=== PATIENT | female | born 1965 | race Caucasian/White ===

== ENCOUNTER 2019-05-23 11:45 | Inpatient (IN) | payer OTHER ==
[~2019-05-23] VITALS: Ht 160 cm; Wt 93.0 kg
[~2019-05-23 11:45] MED LIST: ACET-2065 PO; APIX5TAB PO; ATOR-2 PO; FLEC100T PO; LISI-167 PO; METO25TA35 PO; METO25TA91 PO; MULT1TAB60 PO; ROSU5TAB PO; SOTA80TA18 PO
--- NOTE | 2019-05-23 12:22 | NUR ---
PATIENT PRESENTS TO ED TODAY FOR NEAR SYNCOPAL EPISODE TODAY AT 1200 WITH CHEST TIGHTNESS, DENIES LOC. HX A-FIB WITH CARDIAC ABLASION 03/09/19. PATIENT REPORTS SHE IS SCHEDULED FOR CARDIAC ABLATION TOMORROW WITH DR SKY. PATIENT AMB WITH STEADY GAIT TO ROOM TR 02, PRIME BROKER ON PATIENT. AWAITING MD ORDERS, CALL LIGHT WITHIN REACH. A+OX4, RESP EVEN/UNLABORED.
--- NOTE | 2019-05-23 12:34 | NUR ---
TASK RN: PT RESTING ON GURNEY. MANNING. MONITORS REMAIN IN PLACE. WARM BLANKET AND PILLOW PROVIDED.
[2019-05-23] MEDS ORDERED: METOPROLOL 1 MG/ML, 5ML IVPush SCH (13:00)
[2019-05-23] MEDS ORDERED: METOPROLOL 1 MG/ML, 5ML ONE (13:10)
--- NOTE | 2019-05-23 13:13 | NUR ---
PATIENT TO BE ADMITTED, PATIENT UPDATED ON POC. PATIENT SITTING IN [facility], RESP EVEN/UNLABORED. IV ESTABLISHED, ADMIT ORDER IN, METOPROLOL ADMINSITERED PER ORDER, OKAY'D BY DR SKY WHO WILL BE PERFORMING THE CARDIAC ABLATION TOMORROW. VS UPDATED IN CHART. NO ADDITIONAL NEEDS AT THIS TIME, AWAITING BED ASSIGNMENT.
--- NOTE | 2019-05-23 13:23 | NUR ---
Amena fisher in EDM - 05/23/19 at 1323 by [facility] AT BEDSIDE, RT AT BEDSIDE AND TO PUT PATIENT ON OPTIFLOW SOON LABS ARE DRAWN.
--- NOTE | 2019-05-23 14:17 | NUR ---
PATIENT SITTING IN [facility]. REPORT TO BENITO WHALEY. VS UPDATED IN CHART, AWAITING TRANSPORT.
--- NOTE | 2019-05-23 14:52 | NUR ---
PATIENT TRANSFERRED/ADMITTED TO HOSPITAL BED UPSTAIRS.
[2019-05-23 14:54] VITALS: BP 130/72
[2019-05-23] MEDS ORDERED: METOPROLOL 1 MG/ML, 5ML IVPush PRN (17:00)
[2019-05-23 19:56] VITALS: BP 106/74
[2019-05-24 01:16] VITALS: BP 94/66
[2019-05-24 05:25] LABS: BASOPHILS # (AUTO) 0.03 x10^3/uL (0-0.1); BASOPHILS % (AUTO) 1 % (0-1); EOSINOPHILS # (AUTO) 0.09 x10^3/uL (0-0.4); EOSINOPHILS % (AUTO) 2 % (1-7); LYMPHOCYTES # (AUTO) 2.11 x10^3/uL (1-3.4); LYMPHOCYTES % (AUTO) 42 % (22-44); MD NO; MEAN CORPUSCULAR HEMOGLOBIN 32.6 pg (27.0-34.8); MEAN CORPUSCULAR HGB CONC 34.1 g/dL (32.4-35.8); MEAN CORPUSCULAR VOLUME 95.7 fL (80-100); MEAN PLATELET VOLUME 8.2 fL (7.4-10.4); MONOCYTES # (AUTO) 0.42 x10^3/uL (0.2-0.8); MONOCYTES % (AUTO) 8 % (2-9); NEUTROPHILS # (AUTO) 2.34 x10^3/uL (1.8-6.8); NEUTROPHILS % (AUTO) 47 % (42-75); PLATELET COUNT 253 x10^3/uL (130-400); RED BLOOD COUNT 4.17 x10^6/uL (3.82-5.3); RED CELL DISTRIBUTION WIDTH 13.2 % (9.6-15.2)
[2019-05-24 05:39] LABS: ANION GAP 6 mmol/L (5-15); CALCIUM 8.4 mg/dL (8.5-10.1); CHLORIDE 110 mmol/L (98-107)
[2019-05-24 05:42] LABS: CREATININE 0.68 mg/dL (0.55-1.02)
[2019-05-24 07:15] VITALS: BP 106/73
[2019-05-24] MEDS ORDERED: LIDOCAINE 1%, 20ML ONE (07:15)
[2019-05-24] MEDS ORDERED: ONDANSETRON 2MG/ML, 2ML IV PRN (08:30)
[2019-05-24] MEDS ORDERED: LABETALOL 5MG/ML, 20ML IV PRN (08:30)
[2019-05-24] MEDS ORDERED: MEPERIDINE/PF 25MG/ML,1ML IVPush PRN (08:30)
[2019-05-24] MEDS ORDERED: hydrALAzine 20 MG/ML, 1ML IV PRN (08:30)
[2019-05-24] MEDS ORDERED: HYDROmorphone 2 MG/ML, 1ML IVPush PRN (08:30)
[2019-05-24] MEDS ORDERED: HYDROcodone/APAP 7.5-325MG/15ML UDC PO PRN (08:30)
[2019-05-24] MEDS ORDERED: EPHEDRINE 50 MG/ML, 1ML IVPush PRN (08:30)
[2019-05-24] MEDS ORDERED: ACETAMINOPHEN 325 MG TABLET PO PRN (08:30)
[2019-05-24] MEDS ORDERED: FENTANYL PF 100 MCG/2ML IV PRN (08:30)
[2019-05-24] MEDS ORDERED: PROMETHAZINE 25 MG/ML, 1ML IV PRN (08:30)
[2019-05-24] MEDS: MULTIVITAMIN 1 TABLET PO SCH (09:00)
[2019-05-24] MEDS ORDERED: PROMETHAZINE 25 MG/ML, 1ML ONE (11:46)
[2019-05-24] MEDS: APIXABAN 5 MG TABLET PO SCH (12:19)
[2019-05-24 13:25] VITALS: BP 97/65
[2019-05-24] MEDS: COLCHICINE 0.6 MG CAPSULE PO SCH ×2 (13:53→22:38)
[2019-05-24] MEDS ORDERED: ACETAMINOPHEN 325 MG TABLET ONE (16:18)
[2019-05-24] MEDS: ACETAMINOPHEN 325 MG TABLET PO PRN ×2 (16:22→22:38)
[2019-05-24 19:04] VITALS: BP 110/73
[2019-05-24] MEDS ORDERED: NITROGLYCERIN 0.4 MG/SPRAY SL PRN (20:00)
[2019-05-24] MEDS ORDERED: NITROGLYCERIN 0.4 MG BOTTLE (25 TABS) SL PRN (20:00)
[2019-05-24] MEDS: DOFETILIDE 125 MCG CAPSULE PO SCH (21:00)
[2019-05-24] MEDS: ATORVASTATIN 10 MG TABLET PO SCH (22:39)
[2019-05-24] MEDS ORDERED: APIXABAN 5 MG TABLET PO ONE (23:00)
[2019-05-25 00:36] VITALS: BP 104/71
[2019-05-25 04:05] VITALS: BP 106/76
[2019-05-25] MEDS: APIXABAN 5 MG TABLET PO SCH ×2 (08:36→21:22)
[2019-05-25] MEDS: MULTIVITAMIN 1 TABLET PO SCH (08:36)
[2019-05-25] MEDS: COLCHICINE 0.6 MG CAPSULE PO SCH ×2 (08:36→21:22)
[2019-05-25 08:39] VITALS: BP 114/77
[2019-05-25] MEDS: DOFETILIDE 125 MCG CAPSULE PO SCH ×2 (09:32→21:22)
[2019-05-25] MEDS ORDERED: SIMETHICONE 80 MG CHEW TAB PO PRN (11:00)
[2019-05-25 12:43] VITALS: BP 116/78
[2019-05-25] MEDS: ACETAMINOPHEN 325 MG TABLET PO PRN (17:50)
[2019-05-25 20:02] VITALS: BP 121/78
[2019-05-25] MEDS: ATORVASTATIN 10 MG TABLET PO SCH (21:21)
[2019-05-26 02:34] VITALS: BP 108/71
[2019-05-26] MEDS: ACETAMINOPHEN 325 MG TABLET PO PRN (06:27)
[2019-05-26 07:28] VITALS: BP 114/75
[2019-05-26] MEDS ORDERED: POLYETHYLENE GLYCOL 17 GM PACKET PO ONE (08:30)
[2019-05-26 09:12] LABS: ANION GAP 6 mmol/L (5-15); CALCIUM 8.2 mg/dL (8.5-10.1); CHLORIDE 110 mmol/L (98-107)
[2019-05-26 09:14] LABS: CREATININE 0.69 mg/dL (0.55-1.02)
[2019-05-26] MEDS: MULTIVITAMIN 1 TABLET PO SCH (09:46)
[2019-05-26] MEDS: APIXABAN 5 MG TABLET PO SCH (09:46)
[2019-05-26] MEDS: COLCHICINE 0.6 MG CAPSULE PO SCH (09:46)
[2019-05-26] MEDS: DOFETILIDE 125 MCG CAPSULE PO SCH (10:18)
[2019-05-26] MEDS ORDERED: KETOROLAC 30 MG/1 ML ONE (10:49)
[2019-05-26] MEDS ORDERED: KETOROLAC 30 MG/1 ML IVPush ONE (11:00)
[2019-05-26] MEDS ORDERED: KETOROLAC 30 MG/1 ML IM ONE (11:00)
[2019-05-26] MEDS ORDERED: DOFE250C PO (13:04)
[2019-05-26] MEDS ORDERED: COLC0.6C3 PO (13:06)
[2019-05-26 14:11] VITALS: BP 111/73
== END 2019-05-26 15:01 | disposition home or self-care (01) | DRG 274 ==
LOC: SUATTDRO 13:17 → ED 13:32 → EDIP 13:33 → ED 13:40 → 5SO 15:07 → DCLOUNGE 05-26 14:45
PROVIDERS: ADMIT Family Medicine; ATTEND Family Medicine
PROC: 02K83ZZ Map Conduction Mechanism, Percutaneous Approach (ICD-10-PCS; 2019-05-24)
PROC: 5A2204Z Restoration of Cardiac Rhythm, Single (ICD-10-PCS; 2019-05-24)
PROC: B24BZZ4 Ultrasonography of Heart with Aorta, Transesophageal (ICD-10-PCS; 2019-05-24)
PROC: 03HY32Z Insertion of Monitoring Device into Upper Artery, Percutaneous Approach (ICD-10-PCS; 2019-05-24)
PROC: 02583ZZ Destruction of Conduction Mechanism, Percutaneous Approach (ICD-10-PCS; principal; 2019-05-24 08:00)
DX: I48.92 Unspecified atrial flutter (principal); D68.69 Other thrombophilia; I31.9 Disease of pericardium, unspecified; E78.5 Hyperlipidemia, unspecified; I10 Essential (primary) hypertension; I48.91 Unspecified atrial fibrillation; S00.531A Contusion of lip, initial encounter; X58.XXXA Exposure to other specified factors, initial encounter; Z80.1 Family history of malignant neoplasm of trachea, bronchus and lung; Z87.891 Personal history of nicotine dependence; Y93.89 Activity, other specified; Y92.89 Other specified places as the place of occurrence of the external cause; Y99.8 Other external cause status
CPT/HCPCS: 36415; 93613; 93623; 93656; 93657; 93662; J3490; 71046; 80048; 83735; 85025; 85347; 93005; 93306; 96374; 99285; C1732; C1766; C1893; C1894; G0378; J1885; J2550; C1730; C1759

== ENCOUNTER → 2019-05-24 | Day surgery (SDC) | payer OTHER ==
[2019-05-23 09:45] LABS: BASOPHILS # (AUTO) 0.02 x10^3/uL (0-0.1); BASOPHILS % (AUTO) 0 % (0-1); EOSINOPHILS # (AUTO) 0.08 x10^3/uL (0-0.4); EOSINOPHILS % (AUTO) 2 % (1-7); LYMPHOCYTES # (AUTO) 2.16 x10^3/uL (1-3.4); LYMPHOCYTES % (AUTO) 44 % (22-44); MD NO; MEAN CORPUSCULAR HEMOGLOBIN 31.9 pg (27.0-34.8); MEAN CORPUSCULAR HGB CONC 33.6 g/dL (32.4-35.8); MEAN PLATELET VOLUME 7.9 fL (7.4-10.4); MONOCYTES # (AUTO) 0.36 x10^3/uL (0.2-0.8); MONOCYTES % (AUTO) 7 % (2-9); NEUTROPHILS # (AUTO) 2.32 x10^3/uL (1.8-6.8); NEUTROPHILS % (AUTO) 47 % (42-75); PLATELET COUNT 281 x10^3/uL (130-400); RED BLOOD COUNT 4.34 x10^6/uL (3.82-5.3); RED CELL DISTRIBUTION WIDTH 13.2 % (9.6-15.2)
[2019-05-23 09:58] LABS: ANION GAP 6 mmol/L (5-15); CALCIUM 8.9 mg/dL (8.5-10.1); CHLORIDE 110 mmol/L (98-107)
[2019-05-23 09:59] LABS: CREATININE 0.76 mg/dL (0.55-1.02)
[~2019-05-24] VITALS: Ht 160 cm; Wt 88.6 kg
[~2019-05-24] MED LIST changes: +APIXABAN 5 MG TABLET ONE; +COLC0.6C3 PO; +DEXAMETHASONE 4 MG/ML, 1ML ONE; +DOFE250C PO; +FENTANYL PF 100 MCG/2ML ONE; +GLYCOPYRROLATE 0.2MG/1ML, 5ML ONE; +HEPARIN 1,000 UNITS/ML, 10ML ONE; +ISOPROTERENOL 0.2MG/ML, 5ML ONE; +KETOROLAC 30 MG/1 ML ONE; +LIDOCAINE-MPF 2% ,5ML ONE; +MIDAZOLAM 1 MG/ML, 2ML ONE; +NEOSTIGMINE 1 MG/ML, 10ML ONE; +ONDANSETRON 2MG/ML, 2ML ONE; +PHENYLEPHRINE 10 MG/ML ONE; +PROPOFOL 10 MG/ML, 20ML ONE; +ROCURONIUM 10MG/ML,5ML ONE; +SUCCINYLCHOLINE 20 MG/ML, 10ML ONE
== END | disposition home or self-care (01) ==
LOC: CACL 09:00
PROVIDERS: ATTEND Internal Medicine Cardiovascular Disease
DX: Z02.9 Encounter for administrative examinations, unspecified (principal)
CPT/HCPCS: 36415; 71046; 80048; 85025; 93312; 93321; 93325; J1100; J1644; J1885; J2250; J2405; J2704; J2710; J3010; J0330; J2370

== ENCOUNTER → 2019-11-30 | Outpatient (CLI) | payer OTHER ==
[~2019-11-30] MED LIST changes: -APIXABAN 5 MG TABLET ONE; -DEXAMETHASONE 4 MG/ML, 1ML ONE; -FENTANYL PF 100 MCG/2ML ONE; -GLYCOPYRROLATE 0.2MG/1ML, 5ML ONE; -HEPARIN 1,000 UNITS/ML, 10ML ONE; -ISOPROTERENOL 0.2MG/ML, 5ML ONE; -KETOROLAC 30 MG/1 ML ONE; -LIDOCAINE-MPF 2% ,5ML ONE; -MIDAZOLAM 1 MG/ML, 2ML ONE; -NEOSTIGMINE 1 MG/ML, 10ML ONE; -ONDANSETRON 2MG/ML, 2ML ONE; -PHENYLEPHRINE 10 MG/ML ONE; -PROPOFOL 10 MG/ML, 20ML ONE; -ROCURONIUM 10MG/ML,5ML ONE; -SUCCINYLCHOLINE 20 MG/ML, 10ML ONE
== END | disposition home or self-care (01) ==
LOC: CFH 11:46
PROVIDERS: ATTEND Internal Medicine Cardiovascular Disease
DX: I21.19 ST elevation (STEMI) myocardial infarction involving other coronary artery of inferior wall (principal); I48.0 Paroxysmal atrial fibrillation
CPT/HCPCS: 78452; 93017; A9502

== ENCOUNTER 2020-09-09 19:39 | Emergency (ER) | payer OTHER ==
[~2020-09-09] VITALS: Ht 160 cm; Wt 91.7 kg
[~2020-09-09 19:39] MED LIST changes: +MULT-449 PO; -MULT1TAB60 PO
[2020-09-09 19:41] VITALS: BP 164/107
--- NOTE | 2020-09-09 20:01 | NUR ---
"I HAVE BEEN IN AFIB ALL DAY." HX OF PT REPORTS HER HR HAS BEEN HIGH IN THE 170'S PT IS ON ELIQUIS
[2020-09-09] MEDS ORDERED: PROPOFOL 10 MG/ML, 20ML ONE (20:07)
[2020-09-09] MEDS ORDERED: PROPOFOL 10 MG/ML, 20ML IVPush ONE (20:30)
[2020-09-09 20:33] LABS: ALBUMIN 3.7 g/dL (3.4-5.0); ANION GAP 7 mmol/L (5-15); CALCIUM 8.2 mg/dL (8.5-10.1); CHLORIDE 113 mmol/L (98-107); CREATININE 0.79 mg/dL (0.55-1.02)
--- NOTE | 2020-09-09 20:39 | NUR ---
PT CARDIOVERTD BY DR PRASAD SEE PAPER SEDATION FLOW SHEETS
[2020-09-09 20:45] LABS: BASOPHILS % (AUTO) 1 % (0-1); EOSINOPHILS % (AUTO) 0 % (1-7); LYMPHOCYTES % (AUTO) 27 % (22-44); MEAN CORPUSCULAR HEMOGLOBIN 32.5 pg (27.0-34.8); MEAN CORPUSCULAR HGB CONC 34.4 g/dL (32.4-35.8); MEAN PLATELET VOLUME 8.6 fL (7.4-10.4); MONOCYTES % (AUTO) 13 % (2-9); NEUTROPHILS % (AUTO) 59 % (42-75); PLATELET COUNT 305 x10^3/uL (130-400); RED BLOOD COUNT 4.39 x10^6/uL (3.82-5.3); RED CELL DISTRIBUTION WIDTH 13.8 % (9.6-15.2)
[2020-09-09 20:46] LABS: MD NO
[2020-09-11] MEDS ORDERED: LOSA50TA14 PO (00:04)
== END 2020-09-09 21:38 | disposition home or self-care (01) ==
LOC: ED 21:00
DX: I48.0 Paroxysmal atrial fibrillation (principal); Z95.810 Presence of automatic (implantable) cardiac defibrillator; I10 Essential (primary) hypertension; E11.9 Type 2 diabetes mellitus without complications; I48.92 Unspecified atrial flutter; R00.0 Tachycardia, unspecified
CPT/HCPCS: 36415; 80048; 82040; 83735; 85025; 92960; 93005; 99285

== ENCOUNTER 2020-09-30 12:10 | Emergency (ER) | payer OTHER ==
[~2020-09-30] VITALS: Ht 160 cm; Wt 91.3 kg
[~2020-09-30 12:10] MED LIST changes: +LOSA50TA14 PO; +METO-93 PO
--- NOTE | 2020-09-30 12:42 | NUR ---
PT CAME IN CO OF INTERMITTENT CP AND PALP SINCE THIS MORNING. WAS RECENTLY HOSPITALIZED FOR AFIB. PT HAS HAD MULTIPLE CARDIOVERSIONS AND 2 ABLATIONS. SHE IS SCHEDULED FOR HAVE A MAZE PROCEDURE DONE IN [place] THIS WEDNESDAY. SHE ALSO SAYS THAT HER HR HAS BEEN "DOWN IN THE 40s AT TIMES" SO SHE HELD OFF ON HER DOSE OF METOPROLOL. PT RESTING IN [facility]. EKG COMPLETE. CONNECTED TO ALL MONITORING EQUIPMENT
[2020-09-30 14:00] VITALS: BP 129/78
--- NOTE | 2020-09-30 14:03 | NUR ---
MD AWARE OF PT HR. HE IS COMFORTABLE WITH DC
== END 2020-09-30 14:26 | disposition home or self-care (01) ==
LOC: ED 14:20
DX: R07.9 Chest pain, unspecified (principal); I10 Essential (primary) hypertension; E11.9 Type 2 diabetes mellitus without complications; I48.92 Unspecified atrial flutter; I48.91 Unspecified atrial fibrillation
CPT/HCPCS: 93005; 99283

== ENCOUNTER 2020-10-06 21:24 | Observation (INO) | payer OTHER ==
[~2020-10-06] VITALS: Ht 160 cm; Wt 90.3 kg
--- NOTE | 2020-10-06 21:40 | NUR ---
patient harriet dodge for hypoxia. arrived on 2 L via NC. patient states that she didnt want to come to the hospital but "my family made me come". patient in NAD on arrival. call mccormick in reach. attached to all VS monitoring equipment and placed in hospital gown. will continue to monitor
[2020-10-06 22:01] LABS: BASOPHILS % (AUTO) 0 % (0-1); EOSINOPHILS % (AUTO) 0 % (1-7); LYMPHOCYTES % (AUTO) 10 % (22-44); MEAN CORPUSCULAR HEMOGLOBIN 32.4 pg (27.0-34.8); MEAN CORPUSCULAR HGB CONC 34.2 g/dL (32.4-35.8); MONOCYTES % (AUTO) 5 % (2-9); NEUTROPHILS % (AUTO) 84 % (42-75); PLATELET COUNT 277 x10^3/uL (130-400); RED BLOOD COUNT 3.75 x10^6/uL (3.82-5.3); RED CELL DISTRIBUTION WIDTH 13.5 % (9.6-15.2)
[2020-10-06 22:02] LABS: MD NO
[2020-10-06 22:10] LABS: ALANINE AMINOTRANSFERASE 26 U/L (12-78); ALBUMIN 3.1 g/dL (3.4-5.0); ANION GAP 7 mmol/L (5-15); CALCIUM 8.7 mg/dL (8.5-10.1); CHLORIDE 101 mmol/L (98-107); CREATININE 0.99 mg/dL (0.55-1.02)
[2020-10-06 22:15] LABS: ALKALINE PHOSPHATASE 90 U/L (45-117); TOTAL PROTEIN 7.6 g/dL (6.4-8.2)
[2020-10-06 22:20] LABS: TROPONIN I 0.329 ng/mL (0.000-0.045)
--- NOTE | 2020-10-06 22:30 | NUR ---
steady gait to bathroom with O2 portable tank. no SOB during ambulation. patient transferred to CT via gurney at this time. IV in place
[2020-10-06] MEDS ORDERED: TRAM50TA2 PO (22:40)
[2020-10-06] MEDS ORDERED: FURO20TA3 PO (22:40)
[2020-10-06] MEDS ORDERED: AMIO200T42 PO (22:40)
[2020-10-06] MEDS ORDERED: DOCU250C9 PO (22:40)
[2020-10-06] MEDS ORDERED: POTA20TA14 PO (22:40)
--- NOTE | 2020-10-06 22:45 | NUR ---
patient returned from CT at this time
[2020-10-06] MEDS ORDERED: PIPERACILLIN/TAZO/PMX 3.375GM 50 ML IVPB ONE (23:30)
[2020-10-06] MEDS ORDERED: PIPERACILLIN/TAZO/PMX 3.375GM 50 ML ONE (23:41)
[2020-10-06] MEDS ORDERED: OMNIPAQUE 350 MG/ML, 100ML BOTTLE ONE (23:46)
--- NOTE | 2020-10-07 00:17 | NUR ---
report given to Melvina OLIVER
--- NOTE | 2020-10-07 00:50 | NUR ---
patient found to not be in bed and son reports patient in the bathroom. patient and son had detached patient from VS montioring equipment and did not utilize call mccormick to notify the RN of need to use restroom. son also states that patient refused to use the oxygen while using restroom when patient exited restroom i educate patient importance of wearing oxygen while ambulating and need to use call mccormick. patient states "im fine though. i bet once you hook me up to the pulse ox, ill be fine". patient reattached to pulse ox monitoring and saturation at 77%. supplemental O2 reapplied via NC at 2L and upon departure patient increased to 99%. all personal belongings with patient on transfer. unsure if son took home medications back with him or if sent with patient.
[2020-10-07 01:03] VITALS: BP 107/72
[2020-10-07] MEDS: AMIODARONE 200 MG TABLET PO SCH ×3 (01:50→21:07)
[2020-10-07] MEDS: APIXABAN 5 MG TABLET PO SCH ×3 (01:50→21:06)
[2020-10-07] MEDS ORDERED: ONDANSETRON 2MG/ML, 2ML IVPush PRN (02:00)
[2020-10-07] MEDS ORDERED: BISACODYL 10 MG SUPP PR PRN (02:00)
[2020-10-07] MEDS ORDERED: morphine SULFATE 10 MG/ML, 1ML IVPush PRN (02:00)
[2020-10-07] MEDS ORDERED: MELATONIN 5 MG TABLET PO PRN (02:00)
[2020-10-07] MEDS ORDERED: HYDROcodone/APAP 5/325 TABLET PO PRN (02:00)
[2020-10-07] MEDS ORDERED: ACETAMINOPHEN 325 MG TABLET PO PRN (02:00)
[2020-10-07 02:28] LABS: BASOPHILS % (AUTO) 0 % (0-1); EOSINOPHILS % (AUTO) 0 % (1-7); LYMPHOCYTES % (AUTO) 16 % (22-44); MEAN CORPUSCULAR HEMOGLOBIN 32.4 pg (27.0-34.8); MEAN CORPUSCULAR HGB CONC 33.9 g/dL (32.4-35.8); MEAN PLATELET VOLUME 7.7 fL (7.4-10.4); MONOCYTES % (AUTO) 4 % (2-9); NEUTROPHILS % (AUTO) 80 % (42-75); PLATELET COUNT 298 x10^3/uL (130-400); RED BLOOD COUNT 3.86 x10^6/uL (3.82-5.3); RED CELL DISTRIBUTION WIDTH 13.6 % (9.6-15.2)
[2020-10-07 02:34] LABS: MD NO
[2020-10-07 03:24] LABS: TROPONIN I 0.353 ng/mL (0.000-0.045)
[2020-10-07 06:34] VITALS: BP 95/62
[2020-10-07 07:47] LABS: ALBUMIN 2.7 g/dL (3.4-5.0); ANION GAP 5 mmol/L (5-15); CALCIUM 8.4 mg/dL (8.5-10.1); CHLORIDE 103 mmol/L (98-107)
[2020-10-07 07:52] LABS: ALANINE AMINOTRANSFERASE 23 U/L (12-78); ALKALINE PHOSPHATASE 84 U/L (45-117); BILIRUBIN,TOTAL 0.8 mg/dL (0.2-1.0); CREATININE 0.93 mg/dL (0.55-1.02); TOTAL PROTEIN 6.8 g/dL (6.4-8.2); TROPONIN I 0.317 ng/mL (0.000-0.045)
[2020-10-07 08:21] LABS: BASOPHILS % (AUTO) 0 % (0-1); EOSINOPHILS % (AUTO) 1 % (1-7); LYMPHOCYTES % (AUTO) 17 % (22-44); MEAN CORPUSCULAR HEMOGLOBIN 32.2 pg (27.0-34.8); MEAN CORPUSCULAR HGB CONC 33.9 g/dL (32.4-35.8); MONOCYTES % (AUTO) 4 % (2-9); NEUTROPHILS % (AUTO) 78 % (42-75); PLATELET COUNT 271 x10^3/uL (130-400); RED CELL DISTRIBUTION WIDTH 13.6 % (9.6-15.2)
[2020-10-07 08:23] LABS: MD NO
[2020-10-07] MEDS: POTASSIUM CHLORIDE 20 MEQ TAB.ER.PRT PO SCH (08:38)
[2020-10-07] MEDS: FUROSEMIDE 40 MG/4 ML IV SCH (08:38)
[2020-10-07] MEDS: ATORVASTATIN 20 MG TABLET PO SCH (08:38)
[2020-10-07] MEDS: COLCHICINE 0.6 MG CAPSULE PO SCH ×2 (08:39→21:06)
[2020-10-07] MEDS ORDERED: FUROSEMIDE 40 MG TABLET PO SCH (09:00)
[2020-10-07 12:34] VITALS: BP 105/71
[2020-10-07 18:44] VITALS: BP 103/70
[2020-10-08 01:03] VITALS: BP 108/68
[2020-10-08 05:34] LABS: BASOPHILS % (AUTO) 0 % (0-1); EOSINOPHILS % (AUTO) 1 % (1-7); LYMPHOCYTES % (AUTO) 34 % (22-44); MEAN CORPUSCULAR HGB CONC 33.9 g/dL (32.4-35.8); MEAN PLATELET VOLUME 7.9 fL (7.4-10.4); MONOCYTES % (AUTO) 7 % (2-9); NEUTROPHILS % (AUTO) 57 % (42-75); PLATELET COUNT 308 x10^3/uL (130-400); RED BLOOD COUNT 3.72 x10^6/uL (3.82-5.3); RED CELL DISTRIBUTION WIDTH 13.1 % (9.6-15.2)
[2020-10-08 05:38] LABS: MD NO
[2020-10-08 05:45] LABS: ALANINE AMINOTRANSFERASE 22 U/L (12-78); ALBUMIN 2.9 g/dL (3.4-5.0); ANION GAP 3 mmol/L (5-15); CALCIUM 8.8 mg/dL (8.5-10.1); CHLORIDE 102 mmol/L (98-107)
[2020-10-08 05:48] LABS: ALKALINE PHOSPHATASE 82 U/L (45-117); BILIRUBIN,TOTAL 0.5 mg/dL (0.2-1.0); CREATININE 0.71 mg/dL (0.55-1.02); TOTAL PROTEIN 6.9 g/dL (6.4-8.2)
[2020-10-08 07:40] VITALS: BP 113/74
[2020-10-08] MEDS: COLCHICINE 0.6 MG CAPSULE PO SCH (09:15)
[2020-10-08] MEDS: APIXABAN 5 MG TABLET PO SCH (09:15)
[2020-10-08] MEDS: ATORVASTATIN 20 MG TABLET PO SCH (09:15)
[2020-10-08] MEDS: AMIODARONE 200 MG TABLET PO SCH (09:15)
[2020-10-08 09:16] VITALS: BP 100/65
[2020-10-08 11:15] VITALS: BP 110/71
[2020-10-08] MEDS: FUROSEMIDE 40 MG/4 ML IV SCH (11:17)
[2020-10-08] MEDS: POTASSIUM CHLORIDE 20 MEQ TAB.ER.PRT PO SCH (11:17)
[2020-10-08] MEDS ORDERED: POLYETHYLENE GLYCOL 17 GM PACKET PO ONE (12:00)
[2020-10-08 13:23] VITALS: BP 104/71
== END 2020-10-08 14:53 | disposition home or self-care (01) ==
LOC: ED 10-07 00:15 → INTOOBSV 10-07 00:39 → EDIP 10-07 00:39 → 5SO 10-07 00:54 → DCLOUNGE 10-08 14:44 → UNDODISIN 10-08 14:53 → UNDODISOB 10-08 14:53
PROVIDERS: ADMIT Internal Medicine; ATTEND Family Medicine
DX: J96.01 Acute respiratory failure with hypoxia (principal); I48.91 Unspecified atrial fibrillation; I10 Essential (primary) hypertension; D68.69 Other thrombophilia; I48.0 Paroxysmal atrial fibrillation; E11.9 Type 2 diabetes mellitus without complications; R79.89 Other specified abnormal findings of blood chemistry; E78.5 Hyperlipidemia, unspecified; E66.9 Obesity, unspecified; I27.20 Pulmonary hypertension, unspecified; Z79.899 Other long term (current) drug therapy
CPT/HCPCS: 36415; 71045; 71275; 80053; 83605; 83735; 83880; 84100; 84145; 84484; 85025; 87040; 93005; 93308; 96374; 96375; 96376; 97162; 97165; 99285; G0378; J1940; J2543; Q9967

== ENCOUNTER → 2020-10-30 | Outpatient (CLI) | payer OTHER ==
[~2020-10-30] MED LIST changes: +AMIO200T42 PO; +DOCU250C9 PO; +FURO20TA3 PO; +POTA20TA14 PO; +TRAM50TA2 PO
== END | disposition home or self-care (01) ==
LOC: RAD 13:59
PROVIDERS: ATTEND Thoracic Surgery (Cardiothoracic Vascular Surgery)
DX: I48.19 Other persistent atrial fibrillation (principal); R00.1 Bradycardia, unspecified
CPT/HCPCS: 71046; 93005

== ENCOUNTER 2020-12-12 14:53 | Emergency (ER) | payer OTHER ==
[~2020-12-12] VITALS: Ht 160 cm; Wt 87.8 kg
[2020-12-12] MEDS ORDERED: SODIUM CHLORIDE FLUSH 10ML SYR IVF ONE (15:00)
--- NOTE | 2020-12-12 15:28 | NUR ---
JACKIE HAS BEED AT BEDSIDE FOR ASSESSMENT, NO NEED FOR PIV AT THIS TIME.
[2020-12-12] MEDS ORDERED: ONDANSETRON ODT 4 MG PO ONE (15:30)
[2020-12-12] MEDS ORDERED: ONDANSETRON ODT 4 MG ONE (15:30)
[2020-12-12] MEDS ORDERED: HYDROmorphone 1 MG/ML, 1ML INJ IM ONE (15:30)
[2020-12-12] MEDS ORDERED: HYDROmorphone 1 MG/ML, 1ML INJ ONE (15:31)
--- NOTE | 2020-12-12 15:38 | NUR ---
PT C/O LEFT CHEST PAIN STARTING ABOUT 30-45 MIN AGO WHILE AT WORK. PT SITTING EDGE OF [facility] TO MONITORING. MEDS ADMIN PER SEP. CALL LIGHT IN REACH. FAMILY AT BEDSIDE.
[2020-12-12 15:39] LABS: BASOPHILS % (AUTO) 1 % (0-1); EOSINOPHILS % (AUTO) 1 % (1-7); LYMPHOCYTES % (AUTO) 29 % (22-44); MEAN CORPUSCULAR HEMOGLOBIN 31.7 pg (27.0-34.8); MEAN CORPUSCULAR HGB CONC 33.6 g/dL (32.4-35.8); MEAN PLATELET VOLUME 8.5 fL (7.4-10.4); MONOCYTES % (AUTO) 8 % (2-9); NEUTROPHILS % (AUTO) 61 % (42-75); PLATELET COUNT 274 x10^3/uL (130-400); RED BLOOD COUNT 4.25 x10^6/uL (3.82-5.3); RED CELL DISTRIBUTION WIDTH 13.8 % (9.6-15.2)
[2020-12-12 15:40] LABS: MD NO
[2020-12-12 15:49] LABS: ALANINE AMINOTRANSFERASE 42 U/L (12-78); ALBUMIN 4.1 g/dL (3.4-5.0); ANION GAP 6 mmol/L (5-15); CALCIUM 8.8 mg/dL (8.5-10.1); CHLORIDE 111 mmol/L (98-107); CREATININE 0.68 mg/dL (0.55-1.02)
[2020-12-12 15:54] LABS: ALKALINE PHOSPHATASE 120 U/L (45-117); BILIRUBIN,TOTAL 0.6 mg/dL (0.2-1.0); TOTAL PROTEIN 8.2 g/dL (6.4-8.2); TROPONIN I < 0.015 ng/mL (0.000-0.045)
[2020-12-12] MEDS ORDERED: KETOROLAC 30 MG/1 ML ONE (16:21)
--- NOTE | 2020-12-12 16:25 | NUR ---
PT STATES PAIN IS BETTER, NOW 11/18. ERMD NOTIFIED. 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
[2020-12-12] MEDS ORDERED: KETOROLAC 30 MG/1 ML IM ONE (16:30)
--- NOTE | 2020-12-12 16:51 | NUR ---
ALL RESULTS ARE BACK AT THIS TIME. CHART UP FOR RECHECK.
[2020-12-12] MEDS ORDERED: MAALOX/HYOSCYAMINE/LIDOCAINE 45 ML BTL ONE (17:25)
--- NOTE | 2020-12-12 17:29 | NUR ---
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 PT GOING TO XRAY.
[2020-12-12] MEDS ORDERED: MAALOX/HYOSCYAMINE/LIDOCAINE 45 ML BTL PO ONE (17:30)
--- NOTE | 2020-12-12 17:32 | NUR ---
X-RAY, US DELAY
--- NOTE | 2020-12-12 17:40 | NUR ---
PT BACK FROM XRAY. US AT BEDSIDE.
[2020-12-12 18:26] VITALS: BP 135/75
--- NOTE | 2020-12-12 18:27 | NUR ---
ALL RESULTS ARE BACK AT THIS TIME. CHART UP FOR RECHECK.
--- NOTE | 2020-12-12 18:37 | NUR ---
ERMD AT BEDSIDE TO UPDATE PT ON POC.
[2020-12-12] MEDS ORDERED: MAGNESIUM CITRATE 300ML ORAL SOL PO ONE (19:00)
[2020-12-12] MEDS ORDERED: MAGNESIUM CITRATE 300ML ORAL SOL ONE (19:12)
--- NOTE | 2020-12-12 19:20 | NUR ---
MAG CITRATE GIVEN TO PT FOR HOME ADMIN, PER ERMD.
== END 2020-12-12 19:22 | disposition home or self-care (01) ==
LOC: ED 17:39
DX: R07.2 Precordial pain (principal); R10.13 Epigastric pain; K59.00 Constipation, unspecified; R00.1 Bradycardia, unspecified; I10 Essential (primary) hypertension; E11.9 Type 2 diabetes mellitus without complications; I48.91 Unspecified atrial fibrillation; I48.92 Unspecified atrial flutter
CPT/HCPCS: 36415; 71045; 74021; 76700; 80053; 83690; 83880; 84484; 85025; 85379; 93005; 96372; 99285; J1170; J1885; Q0162